=== PATIENT | male | born 1940 ===

== ENCOUNTER 2020-03-11 11:56 | Outpatient (CLI) | payer MEDICARE, SELFPAY ==
[2020-03-11 12:09] LABS: Hematocrit 43.6 % (37.0-46.0); Hemoglobin 14.3 g/dL (12.4-15.3); Mean Corpuscular HGB Conc 32.8 g/dL (32.0-36.0); Mean Corpuscular Hemoglobin 31.4 pg (27.0-31.0); Mean Corpuscular Volume 95.6 fL (78.0-102.0); Mean Platelet Volume 10.2 fl (8.7-11.0); Platelet Count Result 266 K/mm3 (150-420); Red Blood Count 4.56 M/mm3 (4.70-6.10); Red Cell Distribution Width 13.5 % (11.6-14.4)
[2020-03-11 13:45] LABS: Alanine Aminotransferase 23 U/L (16-63); Albumin Level 3.5 g/dL (3.4-5.0); Alkaline Phosphatase 116 U/L (46-116); Anion Gap 10.1 mmol/L (7-16); Aspartate Amino Transferase 22 U/L (15-37); Bilirubin,Total 0.3 mg/dL (0.00-1.00); Blood Urea Nitrogen 21 mg/dL (7-18); Calcium 9.7 mg/dL (8.5-10.1); Carbon Dioxide 33 mmol/L (21-32); Chloride 102 mmol/L (98-108); Cholesterol 234 mg/dL (0-200); Estimated Glomerular Filt Rate 52; Glucose 106 mg/dL (70-99); HDL Direct 45 mg/dL (40-60); LDL Cholesterol Calculated 159 mg/dL (<130); Osmolality Calculated 293 mOsm/kg (285-295); Potassium 5.1 mmol/L (3.5-5.1); Prostate Specific Antigen 1.1 ng/mL (< OR = 4.0); Sodium 140 mmol/L (136-145); Thyroid Stimulating Hormone 1.87 uIU/mL (0.36-3.74); Total Protein 8.2 g/dL (6.4-8.2); Triglycerides 149 mg/dL (0-150)
== END 2020-03-11 11:57 | disposition home or self-care (01) ==
LOC: CHSLAB 11:59
PROVIDERS: PCP Nurse Practitioner Family; Visit Provider Nurse Practitioner Family
DX: E78.00 Pure hypercholesterolemia, unspecified (principal); Z12.5 Encounter for screening for malignant neoplasm of prostate; J45.909 Unspecified asthma, uncomplicated
CPT/HCPCS: 36415; 80053; 80061; 84153; 84443; 85027; G0103

== ENCOUNTER 2020-11-21 16:17 | Outpatient (CLI) | payer MEDICARE, SELFPAY ==
[2020-11-21 16:35] LABS: Basophils Absolute Auto 0.01 K/mm3 (0.00-0.10); Basophils Percent Auto 0.1 % (0.0-1.0); Hematocrit 37.9 % (37.0-46.0); Hemoglobin 11.8 g/dL (12.4-15.3); Immature Granulocyte Absolute 0.06 K/mm3 (0.00-0.00); Immature Granulocyte Percent A 0.8 % (0.0-0.0); Lymphocytes Absolute Auto 1.23 K/mm3 (1.10-4.50); Lymphocytes Percent Auto 15.7 % (18.0-42.0); Mean Corpuscular HGB Conc 31.1 g/dL (32.0-36.0); Mean Corpuscular Hemoglobin 29.6 pg (27.0-31.0); Mean Platelet Volume 9.4 fl (8.7-11.0); Monocytes Absolute Auto 0.69 K/mm3 (0.10-0.90); Monocytes Percent Auto 8.8 % (2.0-11.0); Neutrophils Absolute Auto 5.9 K/mm3 (1.7-7.2); Neutrophils Percent Auto 74.6 % (50.0-70.0); Platelet Count Result 373 K/mm3 (150-420); Red Blood Count 3.99 M/mm3 (4.70-6.10); Red Cell Distribution Width 15.1 % (11.6-14.4); White Blood Count 7.8 K/mm3 (4.8-10.8)
[2020-11-21 16:43] LABS: Add Urine Microscopic? YES; Appearance Urine Clear (Clear); Bilirubin Urine 1+ (Negative); Blood Urine Negative (Negative); Color Urine Yellow (Yellow); Glucose Urine UA Negative (Negative); Ketones Urine Negative (Negative); Leukocyte Esterase Ur Negative (Negative); Nitrate Urine Negative (Negative); Protein Urine 2+ (Negative); Specific Grav Ur >= 1.030 (1.010-1.020); Urobilinogen Urine 0.2 mg/dL (0.2-1.0); pH Urine 5.5 (5.0-8.0)
[2020-11-21 16:50] LABS: RBC Urine 0-2 /hpf (0-2)
[2020-11-21 16:51] LABS: Bacteria Urine 1+ /hpf; Squamous Epithelial Cell Urine Few /hpf (Few); WBC Urine 0-3 /hpf (0-3)
[2020-11-21 18:12] LABS: Alanine Aminotransferase 44 U/L (16-63); Albumin Level 3.2 g/dL (3.4-5.0); Alkaline Phosphatase 117 U/L (46-116); Anion Gap 12 mmol/L (8-16); Aspartate Amino Transferase 31 U/L (15-37); Bilirubin,Total 0.6 mg/dL (0.00-1.00); Blood Urea Nitrogen 20 mg/dL (7-18); Calcium 9.5 mg/dL (8.5-10.1); Carbon Dioxide 26 mmol/L (21-32); Chloride 100 mmol/L (98-108); Cholesterol 195 mg/dL (0-200); Estimated Glomerular Filt Rate 55; Glucose 142 mg/dL (70-99); HDL Direct 39 mg/dL (40-60); LDL Cholesterol Calculated 125 mg/dL (<130); Osmolality Calculated 290 mOsm/kg (285-295); Potassium 4.7 mmol/L (3.5-5.1); Prostate Specific Antigen 1.1 ng/mL (< OR = 4.0); Sodium 138 mmol/L (136-145); Thyroid Stimulating Hormone 2.08 uIU/mL (0.36-3.74); Total Protein 8.2 g/dL (6.4-8.2); Triglycerides 155 mg/dL (0-150)
[2020-11-25 03:45] LABS: Vitamin D 25 Hydroxy 58 ng/mL (30-100)
== END 2020-11-21 16:18 | disposition home or self-care (01) ==
LOC: CHSLAB 16:22
PROVIDERS: PCP Nurse Practitioner Family; Visit Provider Nurse Practitioner Family
DX: E78.00 Pure hypercholesterolemia, unspecified (principal); R39.12 Poor urinary stream; E03.9 Hypothyroidism, unspecified; R53.0 Neoplastic (malignant) related fatigue; R35.8 Other polyuria; E55.9 Vitamin D deficiency, unspecified
CPT/HCPCS: 36415; 80053; 80061; 81001; 82306; 84153; 84443; 85025; 87077; 87086; 87088; 87186

== ENCOUNTER 2020-12-17 10:33 | Outpatient (CLI) | payer MEDICARE, SELFPAY ==
[2020-12-17 12:03] LABS: Free T4 Free Thyroxine 1.29 ng/dL (0.76-1.46); Thyroid Stimulating Hormone 2.05 uIU/mL (0.36-3.74)
[2020-12-20 19:45] LABS: Vitamin D 25 Hydroxy 70 ng/mL (30-100)
== END 2020-12-17 10:34 | disposition home or self-care (01) ==
PROVIDERS: PCP Nurse Practitioner Family; Visit Provider Registered Nurse
DX: E55.9 Vitamin D deficiency, unspecified (principal); E03.9 Hypothyroidism, unspecified
CPT/HCPCS: 36415; 82306; 84439; 84443

== ENCOUNTER 2021-04-10 13:26 | Outpatient (CLI) | payer MEDICARE, SELFPAY ==
--- NOTE | ~2021-04-10 | US_ITS ---
US soft tissue chest DATE: 04/10/2021 13:54 INDICATION: Localized lump near lower sternal area TECHNIQUE: Real-time imaging of the chest wall in the lower sternal area COMPARISON: 03/14/2017 chest FINDINGS: A localized clinically reported lump likely corresponds to the xiphoid process the lower as pect of the sternum. This could be more definitively confirmed by placing a BB on the area and perfor lucy a limited CT chest examination location. 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 This can be mor e definitively determined by limited CT chest with a BB marker over the area of interest. Reviewed, dictated and finalized at [facility]. Reviewed, dictated and finalized at [facility]. 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 This can be more definitively determined by limited CT chest with a BB m arker over the area of interest.
== END 2021-04-10 13:27 | disposition home or self-care (01) ==
LOC: CHSIMG 13:27
PROVIDERS: PCP Nurse Practitioner Family; Visit Provider Nurse Practitioner Family
DX: R22.2 Localized swelling, mass and lump, trunk (principal)
CPT/HCPCS: 76604

== ENCOUNTER 2021-11-26 06:44 | Emergency (ER) | payer MEDICARE, SELFPAY ==
--- NOTE | ~2021-11-26 | CT_ITS ---
EXAMINATION: CT brain wo con INDICATION: Left arm hemiparesis, hypertension COMPARISON: None TECHNIQUE: Standard unenhanced head CT. The dose-length product (DLP) was 1362.00 mGy-cm. The mA was adjusted according to patient size. Iterative reconstruction technique was employed. FINDINGS: There is no acute intraparenchymal hemorrhage. No evidence of mass lesion. No evidence of a cute infarction. There is mild periventricular and subcortical hypodensity probably related to small vessel ischemic disease. There is mild prominence of the sulci and ventricles related to cerebral atr ophy. Intracranial calcified cerebral atherosclerosis is noted. There are no extra-axial collections. There is no mass effect or midline shift. Changes in the globes are likely from ocular lens surgery. Pansinusitis is noted. IMPRESSION: 1. No acute intracranial abnormality. 2. Age related findings. 3. Pansinusitis. As per stroke protocol, I called these results to the Emergency Department, and discussed with Dr. Josh Trinidad MD at 0704 hours on 11/26/2021. Reviewed, dictated and finalized at [facility]. IMPRESSION: 1. No acute intracranial abnormality. 2. Age related findings. 3. Pansinusitis. As per stroke protocol, I called these results to the Emergency Department, and discussed with Dr. Rox Trinidad MD at 0704 hours on 11/26/2021.
--- NOTE | 2021-11-26 06:48 | ECG_ITS ---
Measurements Intervals [place] Rate: 110 P: [place]: 0 QRS: -13 QRSD: 89 T: 16 QT: 303 QTc: 410 Interpretive Statements ATRIAL FIBRILLATION WITH RAPID VENTRICULAR RESPONSE MODERATE VOLTAGE CRITERIA FOR LVH, CONSIDER NORMAL VARIANT [MEETS CRITERIA IN ONE OF: R(aVL), S(V1), R(V5), R(V5/V6)+S(V1)] ABNORMAL ECG NO PREVIOUS ECG AVAILABLE FOR COMPARISON Electronically Signed On 11-26-2021 16:39:25 CDT by Teja Mullins M.D.
[2021-11-26 06:50] VITALS: BP 178/93; PULSE 120; RESP 20; TEMP 36.6; O2SAT 97
[2021-11-26 07:01] LABS: Basophils Absolute Auto 0.02 K/mm3 (0.00-0.10); Basophils Percent Auto 0.3 % (0.0-1.0); Hematocrit 40.2 % (37.0-46.0); Hemoglobin 13.5 g/dL (12.4-15.3); Immature Granulocyte Absolute 0.09 K/mm3 (0.00-0.00); Immature Granulocyte Percent A 1.2 % (0.0-0.0); Lymphocytes Absolute Auto 1.77 K/mm3 (1.10-4.50); Lymphocytes Percent Auto 24.3 % (18.0-42.0); Mean Corpuscular HGB Conc 33.6 g/dL (32.0-36.0); Mean Corpuscular Hemoglobin 32.6 pg (27.0-31.0); Mean Corpuscular Volume 97.1 fL (78.0-102.0); Mean Platelet Volume 10.6 fl (8.7-11.0); Monocytes Absolute Auto 0.77 K/mm3 (0.10-0.90); Monocytes Percent Auto 10.6 % (2.0-11.0); Neutrophils Absolute Auto 4.6 K/mm3 (1.7-7.2); Neutrophils Percent Auto 63.6 % (50.0-70.0); Platelet Count Result 238 K/mm3 (150-420); Red Blood Count 4.14 M/mm3 (4.70-6.10); Red Cell Distribution Width 13.2 % (11.6-14.4); White Blood Count 7.3 K/mm3 (4.8-10.8)
[2021-11-26 07:17] LABS: Alanine Aminotransferase 17 U/L (16-63); Alkaline Phosphatase 99 U/L (46-116); Anion Gap 9 mmol/L (8-16); Aspartate Amino Transferase 16 U/L (15-37); Bilirubin,Total 0.4 mg/dL (0.00-1.00); Blood Urea Nitrogen 18 mg/dL (7-18); Calcium 8.8 mg/dL (8.5-10.1); Carbon Dioxide 27 mmol/L (21-32); Chloride 102 mmol/L (98-108); Estimated Glomerular Filt Rate > 60; Glucose 108 mg/dL (70-99); Osmolality Calculated 288 mOsm/kg (285-295); Potassium 3.7 mmol/L (3.5-5.1); Sodium 138 mmol/L (136-145)
--- NOTE | 2021-11-26 07:23 | ED.NEUROSD ---
HPI - Neuro Symptoms/Deficit General Chief Complaint: Suspected CVA Stated Complaint: AMBULANCE Source: patient, family and EMS Mode of arrival: EMS Limitations: language barrier, altered mental status, physical limitation and clinical condition History of Present Illness HPI Narrative: This is a 81-year-old gentleman that presents via EMS with an apparent stroke with some slurred speech with left-sided weakness arm and leg, lives with his and his last apparent normal was around 10 in the evening when they went to bed, the patient got up at around 5 in the morning and the heard a thud and the patient had fallen to the ground. EMS was called and observed facial droop with left-sided weakness along left-sided facial droop and arm and leg weakness on the left. His stroke scale was 22, his vitals currently blood pressure 178/93 with heart rate of 110, the patient has a history of asthma, hyperlipidemia. The [facility] patient had an EKG and 2017 that shows a normal sinus rhythm and on this EKG apparently AFib atrial fibrillation is observed with a ventricular rate of 110. Patient is awake alert and does respond to questions, denies any fever chills there is no chest pain no shortness of breath no abdominal pain. Onset (ago): hour(s) Last Observed Normal: 22:00 Timing confirmed by: spouse Location: speech, left face, left arm and left leg Severity: severe Related Data Home Medications Medication Instructions Recorded Confirmed latanoprost 0.005 % eye drops 1 drop EACH EYE .Bedtime ml 07/19/19 03/11/20 Saccharomyces boulardii 250 mg 250 mg PO QAM cap 11/03/20 capsule brimonidine 0.2 % eye drops 1 drp EACH EYE QAM ml 11/03/20 budesonide-formoterol HFA 160 2 puff INHALATION Q12H 11/03/20 mcg-4.5 mcg/actuation aerosol inhaler calcium carbonate 500 mg calcium 500 mg PO DAILY 11/03/20 (1,250 mg) tablet cholecalciferol (vitamin D3) 10 10 mcg PO DAILY 11/03/20 mcg (400 unit) tablet docusate sodium 100 mg tablet 100 mg PO DAILY 11/03/20 ferrous sulfate 325 mg (65 mg 325 mg PO DAILY 11/03/20 iron) tablet omega-3 fatty acids 1,000 mg 1,000 mg PO DAILY 11/03/20 capsule sodium chloride 2 % eye drops 1 drp LEFT EYE .Bedtime ml 11/03/20 multivitamin 1 tablet PO DAILY 04/09/21 zinc 50 mg tablet 50 mg PO DAILY PRN 10/19/21 10/19/21 Allergies Allergy/AdvReac Type Severity Reaction Status Date / Time Sulfa (Sulfonamide Allergy Intermediate itching Verified 10/19/21 09:52 Antibiotics) amoxicillin Allergy Mild Itching Verified 10/19/21 09:52 codeine AdvReac Mild Itching Verified 10/19/21 09:52 Review of Systems Review of Systems: All systems reviewed & are unremarkable except as noted in HPI and below PMFSH Past Medical History Medical History Asthma Bronchitis Dysuria GERD (gastroesophageal reflux disease) Glaucoma Gout Hypercholesterolemia Hypothyroidism Iron deficiency anemia Nicotine dependence 25 pack year history 20 years of smokeless tobacco Vitamin D deficiency 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 Other Diabetes mellitus Social History Social History (Reviewed 11/26/21 @ 07:2
[2021-11-26] MEDS: ASPIRIN 300 MG SUPPOSITORY RECTAL (07:30)
[2021-11-26] MEDS: SODIUM CHLORIDE 0.9% IV 500 ML 999 ML IV CONT (07:34)
--- NOTE | 2021-11-26 07:43 | PC.NURSE ---
See stat stroke protocol paperwork, Report given to [facility] for transfer to [facility]. Paperwork for transfer signed per .
[2021-11-26 07:44] VITALS: BP 186/107; PULSE 110; RESP 20; TEMP 36.6; O2SAT 97
== END 2021-11-26 07:43 | disposition short-term general hospital (02) ==
PROVIDERS: Emergency Provider Emergency Medicine; PCP Nurse Practitioner Family
DX: I63.9 Cerebral infarction, unspecified (principal); K21.9 Gastro-esophageal reflux disease without esophagitis; E78.00 Pure hypercholesterolemia, unspecified; E03.9 Hypothyroidism, unspecified; E55.9 Vitamin D deficiency, unspecified; Z87.891 Personal history of nicotine dependence
CPT/HCPCS: 36415; 70450; 80053; 83605; 84484; 85025; 93005; 99285; A9270; J7040